=== PATIENT | male | born 1955 | race Caucasian/White ===

== ENCOUNTER 2022-02-03 13:25 | Emergency (ER) | payer MEDICARE ==
[2022-02-03 14:54] LABS: BASOPHIL 0.7 % (0-2); EOSINOPHIL 0.9 % (0-7); HCT 44.8 % (42.0-52.0); HGB 15.4 g/dl (13.2-18.0); LYMPHOCYTE 7.2 % (15-48); MCH 31.4 pg (25.0-31.0); MCHC 34.4 g/dL (32.0-36.0); MCV 91.4 fL (78.0-100.0); MONOCYTE 8.9 % (0-12); MPV 10.2 fL (6.0-9.5); NEUTROPHIL 80.9 % (41-80); NRBC 0; PLT 264 K/uL (150-400); RDW 12.5 % (11.5-14.0)
[2022-02-03 15:15] LABS: IRON % SATURATION 46.4 %SAT (20-50)
[2022-02-03 15:30] LABS: BILIRUBIN NEGATIVE (NEGATIVE); BLOOD NEGATIVE Ery/uL (NEGATIVE); CLARITY CLEAR (CLEAR); COLOR YELLOW (YELLOW); GLUCOSE (U) 1+ mg/dL (NORMAL); LEUKOCYTES NEGATIVE Leu/uL (NEGATIVE); NITRITE NEGATIVE (NEGATIVE); PROTEIN NEGATIVE (NEGATIVE); SPECIFIC GRAVITY 1.015 (1.001-1.030); UROBILINOGEN 0.2 mg/dL (0.2-1.0); pH 6.5 (5.0-9.0)
[2022-02-03 15:38] LABS: LACTIC ACID 1.5 mmol/L (0.4-1.9)
[2022-02-03 15:39] LABS: ALBUMIN 3.5 g/dL (3.4-5.0); ALKALINE PHOSHATASE 81 U/L (46-116); ALT 26 U/L (16-63); AST 13 U/L (15-37); BILIRUBIN - TOTAL 0.5 mg/dL (0.2-1.0); BUN 20 mg/dL (7-18); BUN/CREAT RATIO (CALC) 13.2 RATIO; CHLORIDE 107 mmol/L (98-107); CO2 (BICARBONATE) 28 mmol/L (21-32); CREATININE 1.51 mg/dL (0.67-1.17); FOLIC ACID (SERUM) 8.3 ng/mL (8.6-58.9); GLOBULIN (CALCULATION) 3.1 g/dL; GLUCOSE 177 mg/dL (74-106); MAGNESIUM 2.2 mg/dL (1.8-2.4); TOTAL PROTEIN 6.6 g/dL (6.4-8.2)
[2022-02-03 15:40] LABS: ECSTASY (MDMA) NEGATIVE (NEGATIVE); MARIJUANA (THC) NEGATIVE (NEGATIVE); METHADONE NEGATIVE (NEGATIVE)
[2022-02-03 15:41] LABS: AMPHETAMINES NEGATIVE (NEGATIVE); BARBITURATES NEGATIVE (NEGATIVE); OPIATES NEGATIVE (NEGATIVE); OXYCODONE NEGATIVE (NEGATIVE)
[2022-02-03] MEDS ORDERED: PAXLOVID CO-PA1 EAC1 PO (16:50)
[2022-02-03] MEDS ORDERED: XANAX0.25 MG PO (16:50)
== END 2022-02-03 17:23 | disposition home or self-care (01) ==
LOC: FER 13:25
PROVIDERS: Emergency Medicine
DX: R41.0 Disorientation, unspecified (principal); U07.1 COVID-19; I10 Essential (primary) hypertension; Z86.73 Personal history of transient ischemic attack (TIA), and cerebral infarction without residual deficits; Z79.82 Long term (current) use of aspirin; Z79.899 Other long term (current) drug therapy
CPT/HCPCS: 36415; 70450; 71045; 80053; 80305; 81003; 82140; 82607; 82728; 82746; 83540; 83550; 83605; 83735; 84145; 84439; 84443; 84484; 85025; 93005; G0480; U0002